=== PATIENT | female | born 1965 | race Caucasian/White ===

== ENCOUNTER → 2020-08-17 13:38 | Outpatient (BNVA) | payer MEDICARE, MEDICAID, SELFPAY | PROVIDERS: PCP Internal Medicine Geriatric Medicine; Visit Provider Nurse Practitioner Family | DX: Z01.818 Encounter for other preprocedural examination (principal); K21.9 Gastro-esophageal reflux disease without esophagitis; K59.00 Constipation, unspecified; I10 Essential (primary) hypertension; Z79.899 Other long term (current) drug therapy; Z80.0 Family history of malignant neoplasm of digestive organs | CPT/HCPCS: 99212 ==

== ENCOUNTER 2020-09-21 08:48 | Outpatient (REF) | payer MEDICARE, MEDICAID, SELFPAY ==
--- NOTE | 2020-09-21 08:53 | MM_ITS ---
EXAMINATION: MM SCREENING DIGITAL BREAST TOMOSYNTHESIS, BILATERAL CLINICAL INFORMATION: Screening. Asymptomatic. The lifetime risk of breast cancer based on the Tyrer-Cuzick Model is 9.5%. COMPARISON: Mammography: September 19, 2019 and studies dating back to July 02, 2011 TECHNIQUE: Digital breast tomosynthesis is performed in both the craniocaudal and mediolateral oblique views along with computer-aided detection (CAD). Synthesized 2D images are generated from the tomosynthesis. FINDINGS: The breasts are heterogeneously dense, which may obscure small masses (ACR BI-RADS breast composition Category c). There are no significant masses, abnormal calcifications, or other abnormalities. MM/MM tomosynthesis screening BI IMPRESSION: There are no significant changes from prior study. ASSESSMENT: BI-RADS 1: Negative RECOMMENDATION: Routine annual mammography screening. This patient's information was entered into a reminder system with a target due date for their next mammogram.
== END 2020-09-21 08:49 | disposition home or self-care (01) ==
LOC: HO.MAMMO 08:48
PROVIDERS: Visit Provider Internal Medicine Geriatric Medicine
DX: Z12.31 Encounter for screening mammogram for malignant neoplasm of breast (principal)
CPT/HCPCS: 77063; 77067

== ENCOUNTER → 2020-10-12 15:00 | Outpatient (BNVA) | payer MEDICARE, MEDICAID, SELFPAY | PROVIDERS: PCP Internal Medicine Geriatric Medicine; Visit Provider Nurse Practitioner Family | DX: Z13.89 Encounter for screening for other disorder (principal) | CPT/HCPCS: 99212 ==

== ENCOUNTER 2020-10-29 09:18 | Day surgery (SDC) | payer MEDICARE, MEDICAID, SELFPAY ==
--- NOTE | 2020-10-28 08:30 | HO.ANESPROP2 ---
Documented by User: Carmelina Thompson 10/28/20 08:30 HPI - Anesthesia Eval Consult details Narrative: 55yo F for Colonoscopy PMFSH Past Medical History Medical History Arthritis of both knees Back pain Fibromyalgia GERD (gastroesophageal reflux disease) Glaucoma HTN (hypertension) Hypercholesteremia Family History Family History Father Hx of diabetes insipidus Family hx of hypertension Mother No problems noted. Paternal Uncle Colon cancer Maternal Uncle Colon cancer Brother Family hx of prostate cancer Surgical History Surgical History History of carpal tunnel surgery History of colonoscopy Hx of endoscopy Hx of removal of cyst Hx of tubal ligation Social History Social History Alcohol intake: current Alcohol intake frequency: holidays/special occasions only Smoking Status: Former smoker Tobacco Type: Cigarette Second Hand Smoke Exposure: No Use of substances other than those prescribed or required for medical reasons: No Advance Directives: No Advance Directives Information Provided: No Advance Directives on File: No Meds Allergies Allergy/AdvReac Type Severity Reaction Status Date / Time oxycodone Allergy Severe Itching Verified 10/12/20 15:02 shellfish derived Allergy Unknown CLAMS- Verified 10/12/20 15:02 [SHELLFISH DERIVED] ITCHY,DIARRHEA Home Medications Medication Instructions Recorded Confirmed Type atorvastatin 20 mg tablet 20 mg PO QPM 08/17/20 10/23/20 History clonazepam 1 mg tablet 1 mg PO BID 08/17/20 10/29/20 History diclofenac sodium 50 mg 50 mg PO BID 08/17/20 10/23/20 History tablet,delayed release hydrocodone 5 mg-acetaminophen 325 1 tab PO BID PRN 08/17/20 10/23/20 History mg tablet latanoprost 0.005 % eye drops 1 drp OPHTHALMIC (EYE) QPM 08/17/20 10/23/20 History lisinopril 20 1 tab PO DAILY 08/17/20 10/29/20 History mg-hydrochlorothiazide 12.5 mg tablet omeprazole 20 mg capsule,delayed 20 mg PO BID 08/17/20 10/29/20 History release sertraline 100 mg tablet 200 mg PO DAILY tab 08/17/20 10/23/20 History timolol 0.5 % eye drops 1 drp OPHTHALMIC (EYE) Q12H 08/17/20 10/23/20 History Exam Exam Date and Time: October 28, [id number] Assessment and Plan Assessment Anesthesia Assessment: Chart Reviewed Documented by User: Torrey Gordon 10/29/20 10:17 PMFSH Past Medical History Medical History Arthritis of both knees Back pain Fibromyalgia GERD (gastroesophageal reflux disease) Glaucoma HTN (hypertension) Hypercholesteremia Family History Family History Father Hx of diabetes insipidus Family hx of hypertension Mother No problems noted. Paternal Uncle Colon cancer Maternal Uncle Colon cancer Brother Family hx of prostate cancer Surgical History Surgical History History of carpal tunnel surgery History of colonoscopy Hx of endoscopy Hx of removal of cyst Hx of tubal ligation Social History Social History Alcohol intake: current Alcohol intake frequency: holidays/special occasions only Smoking Status: Former smoker Tobacco Type: Cigarette Second Hand Smoke Exposure: No Use of substances other than those prescribed or required for medical reasons: No Advance Directives: No Advance Directives Information Provided: No Advance Directives on File: No Meds Allergies Allergy/AdvReac Type Severity Reaction Status Date / Time oxycodone Allergy Severe Itching Verified 10/12/20 15:02 shellfish derived Allergy Unknown CLAMS- Verified 10/12/20 15:02 [SHELLFISH DERIVED] ITCHY,DIARRHEA Home Medications Medication Instructions Recorded Confirmed Type atorvastatin 20 mg tablet 20 mg PO QPM 08/17/20 10/23/20 History clonazepam 1 mg tablet 1 mg PO BID 08/17/20 10/29/20 History diclofenac sodium 50 mg 50 mg PO BID 08/17/20 10/23/20 History tablet,delayed release hydrocodone 5 mg-acetaminophen 325 1 tab PO BID PRN 08/17/20 10/23/20 History mg tablet latanoprost 0.005 % eye drops 1 drp OPHTHALMIC (EYE) QPM 08/17/20 10/23/20 History lisinopril 20 1 tab PO DAILY 08/17/20 10/29/20 History mg-hydrochlorothiazide 12.5 mg tablet omeprazole 20 mg capsule,delayed 20 mg PO BID 08/17/20 10/29/20 History release sertraline 100 mg tablet 200 mg PO DAILY tab 08/17/20 10/23/20 History timolol 0.5 % eye drops 1 drp OPHTHALMIC (EYE) Q12H 08/17/20 10/23/20 History Exam Airway Mallampati Class: III TM Dist: >3cm Neck ROM: Full Loose/Missing/Broken Teeth: No Heart: [id number] Lungs: cta b/l Assessment and Plan Assessment Anesthesia Assessment: Anesthesia Plan Discussed, PAT Visit and Chart Reviewed Final Anesthetic Review NPO: Yes ASA Class: III Final Preanesthetic Review: No Changes in Pt Med Stat, Meds/Allgs Chart Reviewed, Consent Obtained/Reviewed and Anes Risks/Benef Reviewed Patient Risk: Intermediate Procedure Risk: Low Assessment/Block/Sedation in SS: Assess/Block/Sedation-SS Anesthetic Plan Anesthetic Plan: MAC: and Agree w/ Assess. and Plan Disposition: Standard PACU
[2020-10-28 12:58] VITALS: BMI 33.9
[2020-10-29 09:46] VITALS: BP 127/82; PULSE 112; RESP 16; TEMP 35.9; O2SAT 98
[2020-10-29] MEDS: Lactated Ringers 1,000 ML 100 ML IVCONT (09:54)
--- NOTE | 2020-10-29 09:59 | MHC.SHP ---
Pre-Procedural Eval Section A The patient is an INPATIENT: No Changes since office visit: No Cold of Flu in the past 2 weeks, No New Medical Problems, No Changes in Medication and No Patient answered all questions The History & Physical has been completed within 30 days and I have reviewed it.: Yes Section B Chief Complaint: screening Allergies: Allergies Allergy/AdvReac Type Severity Reaction Status Date / Time oxycodone Allergy Severe Itching Verified 10/12/20 15:02 shellfish derived Allergy Unknown CLAMS- Verified 10/12/20 15:02 [SHELLFISH DERIVED] ITCHY,DIARRHEA Plan Diagnosis/Plan: Change (colonoscopy no dilation--entry error) I have reviewed the history and physical and performed a pertinent physical examination on my patient. No changes have occurred unless specified.yes
--- NOTE | 2020-10-29 10:35 | PM.PROC ---
Brief Operative Note Date of procedure: 10/29/20 Pre-op diagnosis: Hx of polyps; colon cancer screening Post-op diagnosis: other (Poor prep--exam to colon) Procedure: Colonoscopy Anesthesia: MAC (CORBIN Baer) Surgeon: Stefany Schmidt Estimated blood loss (mL): 0 Pathology: none sent Condition: stable Disposition: PACU
[2020-10-29 10:37] VITALS: BP 106/65; PULSE 117; RESP 16; TEMP 36.3; O2SAT 96
[2020-10-29 10:51] VITALS: BP 113/76; PULSE 96; RESP 18; TEMP 36.2; O2SAT 96
--- NOTE | 2020-10-29 12:28 | HO.POSTANES ---
Post Anesthesia Evaluation Post Anesthesia Evaluation Vital Signs: Vital Signs Temp Pulse Resp BP Pulse Ox 10/29/20 10:51 97.2 F 96 18 113/76 96 10/29/20 10:37 97.4 F 117 H 16 106/65 96 10/29/20 09:46 96.6 F L 112 H 16 127/82 98 Anesthesia: Monitored Mental Status: Awake Pain Control: Satisfactory Nausea/Vomiting: None Hydration: Adequate Anesthesia-Related Issues: No Anes. Related Issues
--- NOTE | 2020-10-29 13:39 | OP_ITS ---
SURGEON: Stefany Schmidt MD PREOPERATIVE DIAGNOSIS: Hx of Tubular adenomas ([place] report from [facility]-2015 scanned--this exam did get to the cecum:rev. 2 rectal polyps-hyperplastic.--it was the colo done year before THIS ONE that had the polyps but had been incomplete to the hepatic flexure.) POSTOPERATIVE DIAGNOSIS: Poor prep to cecum, many areas obscured due to residual. PROCEDURE PERFORMED: Colonoscopy. ESTIMATED BLOOD LOSS: No blood loss. COMPLICATIONS: No complications. ANESTHESIA: Monitored. ANESTHESIOLOGIST: CORBIN Baer. ASSISTANTS:NONE SPECIMENS: No specimens removed. SCHOOL BUS OPERATOR: Dr. Schmidt. CONDITION: Postprocedure, stable. FINDINGS: Digital rectal exam revealed sphincter tone to be adequate. Video colonoscope was introduced without difficulty. Initially, the prep appeared to be adequate as we navigated through the rectosigmoid area; however, there were moderate amount of turbid fluid present, which had to continually be flushed. Suctioning was impeded due to various areas containing alot of retained fibrous material. Once we got beyond the hepatic flexure, we were able to course down into the proximal ascending colon. Ileocecal valve was seen, draped with flocculent material. Cecal cap was not visualized due to the presence of retained materials that could not be readily flushed and suctioned. The scope was withdrawn. No additional lesions were seen. CURRENT PLAN: I will review the patient's last colonoscopy report (see above.). If we have it, she will need a repeat exam. Depending on the results of that, would suggest doing FIT testing in the month of November and decide on followup with a two-day prep in 1 to 2 years. GRAFT OR IMPLANTS: No grafts or implants. Stefany Schmidt MD MEN/MODL / [id number] MTDD
== END 2020-10-29 11:47 | disposition home or self-care (01) ==
PROVIDERS: PCP Internal Medicine Geriatric Medicine; Visit Provider Internal Medicine Gastroenterology
PROC: 0DJD8ZZ Inspection of Lower Intestinal Tract, Via Natural or Artificial Opening Endoscopic (ICD-10-PCS; CPT 45378; principal; 2020-10-29 09:30)
DX: Z12.11 Encounter for screening for malignant neoplasm of colon (principal); Z86.010 Personal history of colon polyps; K59.00 Constipation, unspecified; K21.9 Gastro-esophageal reflux disease without esophagitis; I10 Essential (primary) hypertension; Z79.899 Other long term (current) drug therapy; Z88.8 Allergy status to other drugs, medicaments and biological substances; Z87.891 Personal history of nicotine dependence
CPT/HCPCS: G0105

== ENCOUNTER → 2020-11-24 13:24 | Outpatient (BNVA) | payer MEDICARE, MEDICAID, SELFPAY | PROVIDERS: PCP Internal Medicine Geriatric Medicine; Visit Provider Nurse Practitioner Family | DX: Z13.89 Encounter for screening for other disorder (principal) | CPT/HCPCS: Q3014 ==

== ENCOUNTER 2020-12-08 10:00 | Outpatient (REF) | payer MEDICARE, MEDICAID, SELFPAY | END 2020-12-08 10:01 | disposition home or self-care (01) | LOC: HO.LNP 10:00 | PROVIDERS: Visit Provider Nurse Practitioner Family | DX: Z13.89 Encounter for screening for other disorder (principal) ==

== ENCOUNTER 2020-12-09 12:38 | Outpatient (REF) | payer MEDICARE, MEDICAID, SELFPAY ==
[2020-12-09 14:24] LABS: FIT1 NEGATIVE (NEGATIVE)
[2020-12-09 14:25] LABS: FIT Int Ctl YES; FIT2 NEGATIVE (NEGATIVE)
== END 2020-12-09 12:39 | disposition home or self-care (01) ==
LOC: HO.LNP 12:38
PROVIDERS: Visit Provider Nurse Practitioner Family
DX: Z12.11 Encounter for screening for malignant neoplasm of colon (principal)
CPT/HCPCS: 82274; 87338

== ENCOUNTER → 2020-12-22 13:43 | Outpatient (BNVA) | payer MEDICARE, MEDICAID, SELFPAY | PROVIDERS: PCP Internal Medicine Geriatric Medicine; Visit Provider Nurse Practitioner Family | DX: Z13.89 Encounter for screening for other disorder (principal) | CPT/HCPCS: Q3014 ==

== ENCOUNTER → 2021-01-12 14:41 | Outpatient (BNVA) | payer MEDICARE, MEDICAID, SELFPAY | PROVIDERS: PCP Internal Medicine Geriatric Medicine; Visit Provider Nurse Practitioner Family | DX: Z13.89 Encounter for screening for other disorder (principal) | CPT/HCPCS: Q3014 ==

== ENCOUNTER → 2021-03-30 14:46 | Outpatient (BNVA) | payer MEDICARE, MEDICAID, SELFPAY | PROVIDERS: Visit Provider Nurse Practitioner Family | DX: K21.9 Gastro-esophageal reflux disease without esophagitis (principal); K59.00 Constipation, unspecified | CPT/HCPCS: Q3014 ==

== ENCOUNTER → 2021-05-04 11:02 | Outpatient (BNVA) | payer MEDICARE, MEDICAID, SELFPAY | PROVIDERS: Referring Provider Internal Medicine Geriatric Medicine; Visit Provider Surgery | DX: L73.2 Hidradenitis suppurativa (principal); I10 Essential (primary) hypertension; E78.00 Pure hypercholesterolemia, unspecified; Z88.5 Allergy status to narcotic agent; Z91.013 Allergy to seafood | CPT/HCPCS: 99202 ==

== ENCOUNTER → 2021-05-17 15:41 | Outpatient (BNVA) | payer MEDICARE, MEDICAID, SELFPAY | PROVIDERS: Visit Provider Nurse Practitioner Family | DX: Z13.89 Encounter for screening for other disorder (principal) | CPT/HCPCS: Q3014 ==

== ENCOUNTER → 2021-09-20 11:14 | Outpatient (BNVA) | payer MEDICARE, MEDICAID, SELFPAY | PROVIDERS: Visit Provider Nurse Practitioner Family | DX: Z12.11 Encounter for screening for malignant neoplasm of colon (principal); K59.04 Chronic idiopathic constipation; K21.9 Gastro-esophageal reflux disease without esophagitis; R14.0 Abdominal distension (gaseous) | CPT/HCPCS: 99212 ==

== ENCOUNTER 2021-10-13 08:55 | Day surgery (SDC) | payer MEDICARE, MEDICAID, SELFPAY ==
[2021-10-13 09:00] VITALS: BP 134/67; PULSE 84; RESP 18; TEMP 36.6; O2SAT 98; BMI 33.0
--- NOTE | 2021-10-13 09:32 | MHC.SHP ---
Pre-Procedural Eval Section A Date of Service: 10/13/21 Section B Chief Complaint: Constipation Details of Present Illness: x 3 uncles with colon cancer Relevant Family History (Specify if Yes): Yes Relevant Social History: Tobacco Use Present Medications: see Short Stay Collaborative assessment Medical History: Significant History (Arthritis of both knees Back pain Fibromyalgia GERD (gastroesophageal reflux disease) Glaucoma HTN (hypertension) Hypercholesteremia Tubular adenoma) History of Previous Operations: Relevant previous surgery/procedure and date(s) (History of carpal tunnel surgery History of colonoscopy Hx of endoscopy Hx of removal of cyst Hx of tubal ligation) Allergies: Allergies Allergy/AdvReac Type Severity Reaction Status Date / Time oxycodone Allergy Severe Itching Verified 09/20/21 11:16 shellfish derived Allergy Unknown CLAMS- Verified 09/20/21 11:16 [SHELLFISH DERIVED] ITCHY,DIARRHEA Review of Systems Sugical H&P ROS: Negative: Constitution, Cardiovascular, Respiratory, Neurological, Psychiatric, Hem-Onc, Allergic/Immunologic, Gastrointestinal, Genitourinary, Musculoskeletal, Integumentary, Endocrine and Eyes/Ears/Nose/Throat Exam Surgical H&P Exam: Normal: HEENT, Normal: Heart, Normal: Lungs, Normal: Extremities, Normal: Abdomen, Normal: Skin and Normal: Neurological Plan Diagnosis/Plan: Unchanged I have reviewed the history and physical and performed a pertinent physical examination on my patient. No changes have occurred unless specified.
--- NOTE | 2021-10-13 10:00 | HO.ANESPROP2 ---
HPI - Anesthesia Eval Consult details Narrative: 56 yo female patient for colonoscopy PMFSH Active Problems Active Problems: All Active Problems (Updated 05/04/21 @ 11:33 by Xu Carranza MD) Hidradenitis (Acute) Screen for colon cancer (Acute) Anxiety Increased BMI LAN. Uses CPAP machine at night Past Medical History Medical History Arthritis of both knees Back pain Fibromyalgia GERD (gastroesophageal reflux disease) Glaucoma HTN (hypertension) Hypercholesteremia Tubular adenoma Family History Family History Father Hx of diabetes insipidus Family hx of hypertension Mother No problems noted. Paternal Uncle Colon cancer Maternal Uncle Colon cancer Brother Family hx of prostate cancer Family history of problems with anesthesia: No Surgical History Surgical History History of carpal tunnel surgery History of colonoscopy Hx of endoscopy Hx of removal of cyst Hx of tubal ligation History of Problems with Anesthesia: No Social History Social History Household Members: Spouse Alcohol intake: current Alcohol intake frequency: does not drink Patient Tobacco Use Status: Former Tobacco user Second Hand Smoke Exposure: No Use of substances other than those prescribed or required for medical reasons: No Have you been hit, kicked, punched, or otherwise hurt by someone within the past year? If so, by whom?: No Are you DNR?: No Advance Directives: No Advance Directives Information Provided: Yes Meds Allergies Allergy/AdvReac Type Severity Reaction Status Date / Time oxycodone Allergy Severe Itching Verified 09/20/21 11:16 shellfish derived Allergy Unknown CLAMS- Verified 09/20/21 11:16 [SHELLFISH DERIVED] ITCHY,DIARRHEA Home Medications Medication Instructions Recorded Confirmed Last Taken Type atorvastatin 20 mg tablet 20 mg PO QPM 08/17/20 05/05/21 Unknown History clonazepam 1 mg tablet 1 mg PO BID 08/17/20 05/05/21 10/29/20 08:30 History diclofenac sodium 50 mg 50 mg PO BID 08/17/20 05/05/21 Unknown History tablet,delayed release hydrocodone 5 mg-acetaminophen 325 1 tab PO BID PRN 08/17/20 05/05/21 Unknown History mg tablet latanoprost 0.005 % eye drops 1 drp OPHTHALMIC (EYE) QPM 08/17/20 05/05/21 Unknown History lisinopril 20 1 tab PO DAILY 08/17/20 05/05/21 10/29/20 08:30 History mg-hydrochlorothiazide 12.5 mg tablet sertraline 100 mg tablet 200 mg PO DAILY tab 08/17/20 05/05/21 Unknown History timolol 0.5 % eye drops 1 drp OPHTHALMIC (EYE) Q12H 08/17/20 05/05/21 Unknown History Exam Exam Date and Time: October 13, 2021 1000 Height,Weight and Vital Signs: Height 5 ft 6 in Weight 92.986 kg Last Vital Signs Temp 98 F 10/13/21 09:00 Pulse 84 10/13/21 09:00 Resp 18 10/13/21 09:00 BP 134/67 10/13/21 09:00 Pulse Ox 98 10/13/21 09:00 Airway Mallampati Class: II TM Dist: >3cm Neck ROM: Full Heart: RRR Lungs: CTAB Assessment and Plan Assessment Anesthesia Assessment: Anesthesia Plan Discussed and Chart Reviewed Final Anesthetic Review Family History of Problems with Anesthesia: No History of Problems with Anesthesia: No NPO: Yes ASA Class: III Final Preanesthetic Review: No Changes in Pt Med Stat, Meds/Allgs Chart Reviewed, Consent Obtained/Reviewed and Anes Risks/Benef Reviewed Patient Risk: Intermediate Procedure Risk: Low Assessment/Block/Sedation in SS: Assess/Block/Sedation-SS Anesthetic Plan Anesthetic Plan: MAC: Disposition: Standard PACU
--- NOTE | 2021-10-13 10:26 | P.BOP_ITS ---
Brief Operative Note Date of Service: 10/13/21 Pre-op diagnosis: FH of CRC Post-op diagnosis: same Procedure: see op note Surgeon: Chaz Vazquez MD Anesthesia: MAC Was an Front Office Manager used for this Procedure?: No Estimated blood loss (mL): 0 Condition: stable Disposition: PACU
--- NOTE | 2021-10-13 10:27 | P.OP_ITS ---
Operative Note Operative Note Date of Service: 10/13/21 Narrative: Operative Information Procedure Description: Colonoscopy COLONOSCOPY Instrument: Olympus variable stiffness pediatric scope 190L Colonoscopy Monitoring: Vital signs and clinical assessment, continuous EKG monitoring, Pulse oximetry, Carbon Dioxide monitoring and blood pressure monitoring were done throughout the procedure. Colon withdrawal time was 9 minutes. Procedure: The patient was placed in the left lateral decubitis position and pre-procedure medications were administered. After a digital rectal examination of the ano-rectum, the video colonoscope was inserted into the rectum and advanced through the colon to the cecum/TI. The colonoscope was slowly withdrawn in a retrograde panoramic fashion and the colon mucosa was carefully examined including a retroflexed view of the rectum. Findings and interventions are described below. Procedure Difficulty: moderate due to tight recto sigmoid junction Findings: Terminal Ileum-normal Cecum:normal Ascending Colon: normal Transverse Colon -normal Descending Colon:normal Sigmoid Colon: 8-9 mm sessile polyp removed with forceps Rectum: Retroflexion with small internal hemorrhoids, grade I Anorectum - normal Colon preparation: Fabens Bowel Preparation Scale Right colon; 2 Transverse colon: 2 Left colon; 2 (0 = Unprepared colon segment with mucosa not seen due to solid stool that cannot be cleared. 1 = Portion of mucosa of the colon segment seen, but other areas of the colon segment not well seen due to staining, residual stool and/or opaque liquid. 2 = Minor amount of residual staining, small fragments of stool and/or opaque liquid, but mucosa of colon segment seen well. 3 = Entire mucosa of colon segment seen well with no residual staining, small fragments of stool or opaque liquid) Impression and Post Procedure Diagnosis: polyp internal hemorrhoids Plan: High fiber diet leaflet Avoid straining at stool, epsom salts and sitz bath, anusol supps or cream Repeat Colonoscopy in 5 years due to FH of CRC or earlier if clinically indicated Above findings were reviewed with the patient and relevant handouts were provided if indicated.
[2021-10-13] MEDS: Lactated Ringers 1,000 ML 100 ML IVCONT (10:32)
[2021-10-13 11:07] VITALS: BP 126/81; PULSE 95; RESP 16; TEMP 37.6; O2SAT 100
[2021-10-13 11:22] VITALS: BP 128/71; PULSE 80; RESP 16; O2SAT 100
[2021-10-13 11:57] VITALS: BP 119/72; PULSE 75; RESP 16; TEMP 36.4; O2SAT 100
== END 2021-10-13 12:26 | disposition home or self-care (01) ==
PROVIDERS: PCP Internal Medicine Geriatric Medicine; Visit Provider Internal Medicine Gastroenterology
PROC: 0DJD8ZZ Inspection of Lower Intestinal Tract, Via Natural or Artificial Opening Endoscopic (ICD-10-PCS; CPT 45378; principal; 2021-10-13 10:00)
DX: Z12.11 Encounter for screening for malignant neoplasm of colon (principal); K63.5 Polyp of colon; K64.0 First degree hemorrhoids; K59.04 Chronic idiopathic constipation; K21.9 Gastro-esophageal reflux disease without esophagitis; I10 Essential (primary) hypertension; M79.7 Fibromyalgia; E78.00 Pure hypercholesterolemia, unspecified; Z79.899 Other long term (current) drug therapy; Z87.891 Personal history of nicotine dependence; Z88.8 Allergy status to other drugs, medicaments and biological substances
CPT/HCPCS: 45380; 88305

== ENCOUNTER 2021-11-02 12:01 | Outpatient (REF) | payer MEDICARE, MEDICAID, SELFPAY ==
--- NOTE | ~2021-11-02 | MM_ITS ---
EXAMINATION: MM SCREENING DIGITAL BREAST TOMOSYNTHESIS, BILATERAL CLINICAL INFORMATION: Screening. Asymptomatic. The lifetime risk of breast cancer based on the Tyrer-Cuzick Model is 6%. COMPARISON: Mammography: 09/21/2020, 09/19/2019, 08/15/2018, 07/28/2017 TECHNIQUE: Digital breast tomosynthesis is performed in both the craniocaudal and mediolateral oblique views along with computer-aided detection (CAD). Synthesized 2D images are generated from the tomosynthesis. FINDINGS: There are scattered areas of fibroglandular density (ACR BI-RADS breast composition Category b). There are no significant masses, abnormal calcifications, or other abnormalities. Parenchymal pattern is similar to prior studies. There is a degenerating fibroadenoma again present posterior central 9:00 right breast with benign bulky calcification. Small intramammary nodes posterior upper outer right breast are stable. No developing density. No significant changes. MM/MM tomosynthesis screening BI IMPRESSION: No mammographic evidence of malignancy. ASSESSMENT: BI-RADS 2: Benign RECOMMENDATION: Routine annual mammography screening. This patient's information was entered into a reminder system with a target due date for their next mammogram.
== END 2021-11-02 12:02 | disposition home or self-care (01) ==
LOC: HO.MAMMO 12:01
PROVIDERS: Visit Provider Internal Medicine Geriatric Medicine
DX: Z12.31 Encounter for screening mammogram for malignant neoplasm of breast (principal)
CPT/HCPCS: 77063; 77067

== ENCOUNTER → 2021-11-10 08:40 | Outpatient (BNVA) | payer MEDICARE, MEDICAID, SELFPAY | PROVIDERS: PCP Internal Medicine Geriatric Medicine; Referring Provider Internal Medicine Geriatric Medicine; Visit Provider Nurse Practitioner Family | DX: K21.9 Gastro-esophageal reflux disease without esophagitis (principal); K59.04 Chronic idiopathic constipation; R14.0 Abdominal distension (gaseous); Z98.890 Other specified postprocedural states | CPT/HCPCS: 99212 ==

== ENCOUNTER 2021-11-12 12:08 | Outpatient (REF) | payer MEDICARE, MEDICAID, SELFPAY ==
[2021-11-12 12:19] LABS: Binax Internal Control QC Valid; Binax Now Covid-19 Ag Negative (Negative)
== END 2021-11-12 12:09 | disposition home or self-care (01) ==
LOC: HO.LAB 12:08
PROVIDERS: PCP Internal Medicine Geriatric Medicine; Visit Provider Internal Medicine
DX: Z13.89 Encounter for screening for other disorder (principal)